=== PATIENT | male | born 2005 | race Caucasian/White ===

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

== ENCOUNTER 2024-02-25 13:34 | Emergency (ER) | payer OTHER, BC, SELFPAY ==
--- NOTE | ~2024-02-25 | CT_ITS ---
Non-contrast Head CT History: Syncope Technique: Axial non-contrast imaging of the brain was performed. Dose reduction technique was used on this scan by utilizing automated exposure control and iterative reconstruction technique. The dose -length product (DLP) was 605.33 mGy-cm. Findings: There is no evidence of intracranial hemorrhage, mass lesion, or acute infarct. Brain par enchyma appears normal. The ventricles and subarachnoid spaces are normal in size. The calvarium ap pears normal. The visualized paranasal sinuses and mastoid air cells are clear. Impression: No significant abnormality seen. Reviewed, dictated and finalized at location . Impression: No significant abnormality seen.
--- NOTE | ~2024-02-25 | XR_ITS ---
XR chest 2V Ordering provider: Celestino Wagoner MD History: 18 years Male with . syncope . Comparison: None. FINDINGS: MEDIASTINUM: The cardiac silhouette is not enlarged. LUNGS: No infiltrates, effusions or pneumothorax. OTHER: No free air under the diaphragm. IMPRESSION: No acute cardiopulmonary pathology. Reviewed, dictated and finalized at location A.
--- NOTE | ~2024-02-25 | CT_ITS ---
Noncontrast CT scan of the cervical spine Technique: Multiple contiguous axial [address] images of the cervical spine were obtained and rec onstructed in 2D sagittal and coronal planes on the acquisition scanner. Dose reduction technique was used on this scan by utilizing automated exposure control, adjustment of the mA and/or kV according to patient size. The dose-length product (DLP) was 433.20 mGy-cm. Clinical History: Pain Findings: No fractures or dislocations. Unremarkable visualized bony structures. The intervertebral disc spaces are preserved. No prevertebral soft tissue swelling. Impression: No fracture or subluxation of the cervical spine. Reviewed, dictated and finalized at location . Impression: No fracture or subluxation of the cervical spine.
[2024-02-25 13:35] VITALS: BP 133/66; PULSE 60; RESP 16; TEMP 36.9; O2SAT 98
--- NOTE | 2024-02-25 14:29 | ECG_ITS ---
Test Date: 2024-02-25 14:46:13 Measurements Intervals [place] Rate: 48 P: -16 [place]: 161 QRS: 79 QRSD: 114 T: 55 QT: 431 QTc: 388 Interpretive Statements SINUS BRADYCARDIA INCOMPLETE RIGHT BUNDLE BRANCH BLOCK MINIMAL Q WAVES- INFERIOR LEADS ABNORMAL ECG No previous ECG available for comparison Electronically Signed On 02-25-2024 14:50:15 CDT by Naman Gill D.O.
--- NOTE | 2024-02-25 14:29 | ED.SYNCOPE ---
HPI - Syncope General Chief Complaint: Syncope Stated Complaint: Syncope after immunizations Time Seen by Provider: 02/25/24 14:09 History of Present Illness HPI narrative: 18-year-old male with no pertinent past medical history aside from ADHD presenting to the emergency department after witnessed syncopal event. Patient was getting immunizations at his primary care provider's office today. After getting the shot in his arm he felt nauseous and stood up and lost consciousness. He woke up several seconds later. No seizure activity or postictal state. No history of seizures or anything like that in the past. He did sustain a ground level fall with closed head injury does have a hematoma over the right side aspect frontal of his scalp. Tetanus is up-to-date. Denies any headache, vision changes, present nauseous or vomiting. He is awake alert oriented ambulatory. He states this has happened before with needles and he was feeling the exact same last time he had a syncopal event. No present symptoms whatsoever. No history of cardiac disease and otherwise is not have any new illnesses, injuries or medication changes. Related Data Allergies Allergy/AdvReac Type Severity Reaction Status Date / Time No Known Allergies Allergy Mild Verified 02/25/24 13:38 Review of Systems Review of Systems: As reviewed above PMFSH Family History Family History Other Diabetes mellitus Hypertension Social History Social History Smoking status: Never smoker Exam Narrative: GENERAL: [Well-appearing, well-nourished, and in no acute distress.] HEAD: Normocephalic but there is a right-sided frontal scalp hematoma not actively bleeding, EYES: [PERRLA and EOMI.] ENT: Nares clear, no rhinorrhea or epistaxis. Mucous membranes moist. NECK: Supple. No midline tenderness or mobility issue CHEST: [Clear to auscultation. No respiratory distress.] HEART: [Regular rate and rhythm]. No murmur heard. [Normal peripheral pulses.] ABDOMEN: [Soft, nondistended], [nontender], [No rigidity or guarding] EXTREMITIES: Normal range of motion. [No edema.] SKIN: Warm, dry, no rash. NEURO: [No focal deficits]. Alert and oriented [x3.] PSYCH: [Normal mood and affect.] Course Vital Signs Vital signs: Vital Signs Temperature 36.9 C 02/25/24 13:35 Pulse Rate 60 02/25/24 13:35 Respiratory Rate 16 02/25/24 13:35 Blood Pressure 133/66 02/25/24 13:35 Pulse Oximetry 98 02/25/24 13:35 Temperature 36.9 C 02/25/24 13:35 Pulse Rate 60 02/25/24 13:35 Respiratory Rate 16 02/25/24 13:35 Blood Pressure 133/66 02/25/24 13:35 Pulse Oximetry 98 02/25/24 13:35 MDM - Syncope MDM Narrative Medical decision making narrative: 18-year-old male presenting for a syncopal event. He was receiving COVID and flu vaccinations today and his primary care provider's office. He felt nauseous and stood up too fast and had loss of consciousness. He woke up several seconds later but did sustain a ground level mechanical fall. Vital signs are stable without any derangements. History of something similar happen to the past with injections the needles. Appears very well not in any acute distress. Normal neurological assessment. Hematoma evident but no other signs of trauma. Given his closed head injury with syncopal event likely vasovagal or postural in nature I believe and EKG will be warranted but no additional screenings necessary at this time given that he is awake alert oriented with no symptoms. Head CT and CT cervical spine were obtained in triage. CT images were independently reviewed by myself and interpreted by radiology. No acute intracranial pathology, no cervical spinal pathology. EKG was independently reviewed by myself. There appears to be some benign early repolarization patterns although not fully in
[2024-02-25 15:30] LABS: Basophils Percent Auto 0.1 % (0.2-1.2); Eosinophils Absolute Auto 0.1 K/mm3 (0-0.3); Eosinophils Percent Auto 1.1 % (0-4.4); Hematocrit 46.3 % (42.0-52.0); Hemoglobin 15.3 g/dL (14.0-18.0); Immature Granulocyte Absolute 0.02 K/mm3 (0.00-0.031); Immature Granulocyte Percent A 0.3 % (0-0.5); Lymphocytes Absolute Auto 0.83 K/mm3 (0.9-3.2); Lymphocytes Percent Auto 11.2 % (18.3-44.2); Mean Corpuscular Hemoglobin 28.9 pg (26-34); Mean Corpuscular Volume 87.4 fl (80-100); Mean Platelet Volume 11.7 fl (7.4-10.4); Monocytes Absolute Auto 0.5 K/mm3 (0.1-0.6); Monocytes Percent Auto 6.9 % (2.6-8.5); Neutrophils Percent Auto 80.4 % (45.5-73.1); Platelet Count Result 183 k/mm3 (150-375); Red Cell Distribution Width 12.7 % (11.5-14.5); White Blood Count 7.4 K/mm3 (4.5-10.0)
[2024-02-25 15:42] LABS: Potassium 3.7 mmol/L (3.4-5.0)
[2024-02-25 15:54] LABS: Troponin I < 0.012 ng/mL (0.000-0.034)
[2024-02-25 16:21] LABS: Anion Gap 10 mmol/L (4-12); Blood Urea Nitrogen 14 mg/dL (8-21); Carbon Dioxide 30 mmol/L (22-30); Chloride 98 mmol/L (98-107); Estimated CRCL calculation 133 ml/min; Estimated Glomerular Filt Rate > 60; Glucose 82 mg/dL (65-110); Sodium 138 mmol/L (134-143)
[2024-02-25 17:20] VITALS: BP 107/62; PULSE 55; RESP 16; O2SAT 100
== END 2024-02-25 17:30 | disposition home or self-care (01) ==
LOC: ANHED 14:36
PROVIDERS: Emergency Provider Student in an Organized Health Care Education/Training Program; PCP Pediatrics
DX: R55 Syncope and collapse (principal); R94.31 Abnormal electrocardiogram [ECG] [EKG]
CPT/HCPCS: 36415; 70450; 71046; 72125; 80048; 83735; 84484; 85025; 93005; 99284